=== PATIENT | female | born 1985 | race Caucasian/White ===

== ENCOUNTER 2017-11-24 16:26 | Inpatient (IN) | payer BC ==
[2017-11-24 16:56] LABS: #Basophils 0.1 thou/uL (0.0-0.2); #Eosinphils 0.1 thou/uL (0.0-0.7); #Lymphocytes 1.6 thou/uL (1.20-3.40); #Monocytes 0.8 thou/uL (0.11-0.59); #Neutrophils 6.4 thou/uL (1.40-6.50); %Basophils 1.6 % (0.0-1.0); %Eosinophils 1.5 % (0.0-10.0); %Lymphocytes 17.7 % (21.0-51.0); %Monocytes 8.5 % (0.0-10.0); %Neutrophils 70.7 % (42.0-75.0); Hemoglobin 11.6 g/dL (14.0-18.0); Mean Corpuscular HGB CONC 32.9 g/dL (32.0-36.0); Mean Corpuscular Hemoglobin 30.3 pg (27.0-31.0); Mean Corpuscular Volume 91.9 fl (80.0-94.0); Mean Platelet Volume 8.3 fL (7.4-10.4); Platelet Count 184 thou/uL (130-400); RBC Distribution Width 13.3 % (11.5-14.5); Red Blood Cell (RBC) Count 3.85 mill/uL (4.70-6.10)
[2017-11-24 17:22] VITALS: BMI 31.4
[2017-11-24 17:27] LABS: ALT (SGPT) 8 U/L (8-55); AST (SGOT) 11 U/L (5-34); Albumin 3.6 g/dL (3.5-5.0); Alkaline Phosphatase 76 U/L (40-150); Anion Gap 13 mmol/L (10-20); BUN (Urea Nitrogen) 11 mg/dL (8.9-20.6); Bilirubin, Total 0.2 mg/dL (0.2-1.2); Calc. Creatinine Clearance 210 mL/min (70-130); Calcium 8.9 mg/dL (7.8-10.44); Carbon Dioxide 20 mmol/L (22-29); Chloride 106 mmol/L (98-107); Estimated GFR-MDRD Greater than 90; Globulin 2.8 g/dL (2.4-3.5); Glucose 78 mg/dL (70-105); Potassium 3.8 mmol/L (3.5-5.1); Protein, Total 6.4 g/dL (6.0-8.3); Sodium 135 mmol/L (136-145)
--- NOTE | 2017-11-24 17:31 | PDOC.LDHP ---
Labor and Delivery H&P Chief complaint: other (elevated bp) HPI: 32 y/o G1 at 38w2d, patient of Dr. Molina, sent from clinic for elevated BPs in 140s/90s. Denies VB, LOF, ctx, or decreased FM. No RICKS, vision changes, or RUQ pain. ROS neg for HEENT, cv, pulm, gi, gu, neuro, psych, skin, musculoskeletal or constitutional symptoms other than mentioned above. OB History Details: First , uncomplicated so far Current complications: none Past Medical History: None Current medications: pre- vitamins Previous surgical history: none Allergies/Adverse Reactions: Allergies Allergy/AdvReac Type Severity Reaction Status Date / Time No Known Drug Allergies Allergy Verified 11/24/17 17:17 Social history: none - Physical Exam Abnormal vital signs: mild range BPs General: NAD, resting Lungs: nonlabored breathing Abdomen: gravid Extremeties: no edema FHT: category 1 (130s, mod variability, + accels, no decels) [place] contractions every: q 5 mins - OB Labs Blood type: A RH: positive Antibody Screen: negative HIV: negative RPR: negative HEPSAg: negative 1 hour GCT: negative GBS: negative Rubella: immune Additional Labs: Laboratory Tests 11/24/17 11/24/17 16:49 16:49 WBC 9.0 RBC 3.85 L Hgb 11.6 L Hct 35.4 L MCV 91.9 MCH 30.3 MCHC 32.9 RDW 13.3 Plt Count 184 MPV 8.3 Neutrophils % 70.7 Lymphocytes % 17.7 L Monocytes % 8.5 Eosinophils % 1.5 Basophils % 1.6 H Neutrophils # 6.4 Lymphocytes # 1.6 Monocytes # 0.8 H Eosinophils # 0.1 Basophils # 0.1 Sodium 135 L Potassium 3.8 Chloride 106 Carbon Dioxide 20 L Anion Gap 13 BUN 11 Creatinine 0.60 Estimated GFR (MDRD) Greater than 90 Glucose 78 Calcium 8.9 Total Bilirubin 0.2 AST 11 ALT 8 Alkaline Phosphatase 76 Serum Total Protein 6.4 Albumin 3.6 Globulin 2.8 Albumin/Globulin Ratio 1.3 - Assessment L&D Assessment: medically indicated induction - Plan Plan: admit to L&D, cervical ripening, informed consent obtained, anesthesia consult for pain management (if needed)
[2017-11-24] MEDS ORDERED: Ibuprofen 800 MG TAB PO PRN (17:50)
[2017-11-24] MEDS ORDERED: Methylergonovine 0.2 MG/ML VIAL IM PRN (17:50)
[2017-11-24] MEDS ORDERED: Misoprostol 200 MCG TAB PR PRN (17:50)
[2017-11-24] MEDS ORDERED: Acetaminophen 500 MG TAB PO PRN (17:50)
[2017-11-24] MEDS ORDERED: Carboprost 250 MCG/ML AMP IM PRN (17:50)
[2017-11-24] MEDS ORDERED: Lidocaine 1% (PF) 30 ML VIAL SC PRN (17:50)
[2017-11-24] MEDS ORDERED: LR / Pitocin 40 units/1000 ml 1,000 ML IV PRN (17:50)
[2017-11-24] MEDS ORDERED: Ondansetron HCl/PF 4 MG/2 ML Vial IVP PRN (17:50)
[2017-11-24] MEDS ORDERED: HYDROcodone/Acetaminophen 5/325 mg Tablet PO PRN ×2 (17:50)
[2017-11-24] MEDS ORDERED: Promethazine HCl 25 MG/ML VIAL IM PRN (17:50)
[2017-11-24] MEDS ORDERED: Diphenoxylate HCl/Atropine Tablet PO PRN ×2 (17:50)
[2017-11-24 18:37] LABS: Creatinine, Urine 48.83 mg/dL (47-110); Protein, Urine Random Quant Less than 10 mg/dL
[2017-11-24 19:56] LABS: HBSAg Index 0.14 S/CO (0-0.99); Hep B Surf Ag Non-Reactive S/CO (NonReactive); Syphilis Antibody Nonreactive (Nonreactive); Syphilis Antibody Index 0.03 S/CO (<1.00 Non-Reactive)
[2017-11-24] MEDS: Lactated Ringer's 1,000 ML IV SCH (20:10)
[2017-11-24] MEDS: Misoprostol 100 MCG TAB VAG SCH ×2 (20:16→23:44)
[2017-11-25] MEDS: Misoprostol 100 MCG TAB VAG SCH ×3 (07:13→15:30)
[2017-11-25] MEDS: Lactated Ringer's 1,000 ML IV SCH ×3 (08:16→22:00)
--- NOTE | 2017-11-25 12:59 | PDOC.LDPN ---
Labor & Delivery Progress Note - Objective Vital signs reviewed and normal: yes General: NAD Uterine fundus: non tender Dilation: 1-2 cm Effacement: 50% Station: -1 FHT: variability present [place] contractions every: q 2-3 mins Other exam findings: Ballon placement attempted, unable -: Asked to co-manage by Dr. Molina. Chart reviewed. Will start pitocin and observe closely.
[2017-11-25] MEDS ORDERED: LR 500 ML/Oxytocin 10 units 500 ML IV SCH (13:00)
[2017-11-25] MEDS ORDERED: Dexamethasone 20 MG/5 ML VIAL ONE (13:54)
[2017-11-25] MEDS ORDERED: Ondansetron HCl/PF 4 MG/2 ML Vial ONE ×2 (13:54→23:15)
[2017-11-25] MEDS ORDERED: PHENYLEPHRINE-NS 100 MCG/ML 10 ML SYRINGE ONE ×2 (13:54→23:15)
[2017-11-25] MEDS ORDERED: Lidocaine 2% MPF 10 ML AMP (For Epidural Use) ONE (13:54)
[2017-11-25] MEDS ORDERED: Ketorolac Tromethamine 30 MG/ML VIAL ONE ×2 (13:54→23:15)
--- NOTE | 2017-11-25 14:54 | PDOC.LDPN ---
Labor & Delivery Progress Note - Subjective Subjective: comfortable, other (pain 1/10) - Objective Vital signs reviewed and normal: yes (normal bp, no sx PIH) General: NAD Uterine fundus: non tender Dilation: 1 Effacement: 50% Station: -2 FHT: category 1 [place] contractions every: q4-5min - Assessment (1) Gestational hypertension Code(s): O13.9 - GESTATIONAL HTN W/O SIGNIFICANT PROTEINURIA, UNSP TRIMESTER Current Visit: Yes Status: Acute Qualifiers: Trimester: third trimester Qualified Code(s): O13.3 - Gestational [ -induced] hypertension without significant proteinuria, third trimester -: [place] Balloon placed 60/60, cont low dose pitocin to 10units. Incr balloon inflation to 80cc/balloon. Ok for epidural if desired. Balloon out at 0000. FHT reassuring. POC discussed with pt. No sx severe PIH. BP wnl.
[2017-11-25] MEDS ORDERED: Bupivacaine 0.5% 20 ML, Fentanyl 400 MCG in Sodium Chloride 0.9% 72 ML EPIDURAL SCH (16:00)
[2017-11-25] MEDS ORDERED: Acetaminophen 325 MG TAB PO PRN (16:57)
[2017-11-25] MEDS ORDERED: diphenhydrAMINE 50 MG/ML VIAL IVP PRN (16:57)
[2017-11-25] MEDS ORDERED: Naloxone HCl 0.4 mg/ml Vial IVP PRN ×2 (16:57)
[2017-11-25] MEDS ORDERED: Promethazine HCl 25 MG/ML VIAL IM PRN (16:57)
[2017-11-25] MEDS ORDERED: Lactated Ringer's 500 ML IV PRN (16:57)
[2017-11-25] MEDS ORDERED: ePHEDrine/0.9% NaCl/PF SYRINGE 50 mg/10 ml SLOW IVP PRN (16:57)
[2017-11-25] MEDS ORDERED: Eucerin (Mineral Oil/Petrolatum,White) 30 gm Jar TOP PRN (16:57)
[2017-11-25] MEDS ORDERED: Ondansetron HCl/PF 4 MG/2 ML Vial IVP PRN (16:57)
[2017-11-25] MEDS ORDERED: Fentanyl 4mcg/Marcaine 0.1% Cassette 100 ML EPIDURAL SCH (17:00)
[2017-11-25] MEDS ORDERED: Communication Order-Pharmacy FS SCH (17:00)
--- NOTE | 2017-11-25 17:50 | PDOC.LDPN ---
Labor & Delivery Progress Note - Subjective Subjective: comfortable - Objective General: NAD, resting FHT: variability present [place] contractions every: q 2- 4 mins, pitocin at 3 mu/min Other exam findings: comfortable with epidural now in place Plan: continue plan of care
--- NOTE | 2017-11-25 21:42 | PDOC.LDPN ---
Labor & Delivery Progress Note - Subjective Subjective: comfortable - Objective Vital signs reviewed and normal: yes General: resting SVE: last SVE per RN is 4 cm Effacement: 75% Station: -3 FHT: variability present [place] contractions every: irregularly seen Other exam findings: Baloon removed and piticin stopped for dec. variability. Procedures: Fhts improved, pitocin restarted Plan: continue plan of care
[2017-11-25] MEDS ORDERED: CEFAZOLIN/Water 2 GM/20 ML SYRINGE ONE (22:49)
[2017-11-25] MEDS ORDERED: Bicitra 30 ML UDCUP ONE (22:49)
--- NOTE | 2017-11-25 22:52 | PDOC.LDPN ---
Labor & Delivery Progress Note - Subjective Subjective: comfortable - Objective Vital signs reviewed and normal: yes General: NAD Uterine fundus: non tender Dilation: 4 Effacement: 75% Station: -3 (hand presentation, noncephalic) FHT: category 1 [place] contractions every: q4min - Assessment (1) Gestational hypertension Code(s): O13.9 - GESTATIONAL HTN W/O SIGNIFICANT PROTEINURIA, UNSP TRIMESTER Current Visit: Yes Status: Acute Qualifiers: Trimester: third trimester Qualified Code(s): O13.3 - Gestational [ -induced] hypertension without significant proteinuria, third trimester Plan: other (To OR for CS for malpresentation. R/B d/w pt and all questions answered. status reassuring.)
--- NOTE | 2017-11-25 22:54 | PDOC.OPDEL ---
OB Operative/Delivery Note Delivery Dr/Surgeon: Jesse Assist: Anthony Pre-Delivery Diagnosis: other (Hand presentation) Weeks gestation: 38 Anesthesia: epidural - Findings A Sex: male - Additional Findings/Plan Placenta delivered: spontaneous findings: low transverse hysterotomy without extension, normal uterus, normal tubes, normal ovaries Estimated blood loss: 900 Compilations/Other Findings: NC x 1, asynclitic and OP, hand presenting. Post delivery plan: routine recovery
[2017-11-25] MEDS ORDERED: CEFAZOLIN/Water 2 GM/20 ML SYRINGE SLOW IVP SCH (23:00)
[2017-11-25] MEDS ORDERED: Bicitra 30 ML UDCUP PO SCH (23:00)
[2017-11-25] MEDS ORDERED: Morphine PF 1 MG/ML SYR ONE (23:14)
[2017-11-25] MEDS ORDERED: Dexamethasone 4 mg/ml Vial ONE (23:15)
[2017-11-25] MEDS ORDERED: Bupivacaine 0.25% HCL 30 ML VIAL ONE (23:15)
[2017-11-25] MEDS ORDERED: Oxytocin 10 UNITS/ML VIAL ONE (23:15)
[2017-11-25] MEDS ORDERED: Carboprost 250 MCG/ML AMP ONE (23:36)
[2017-11-26] MEDS ORDERED: Naloxone HCl 0.4 mg/ml Vial IV PRN (00:03)
[2017-11-26] MEDS ORDERED: Ketorolac Tromethamine 30 MG/ML VIAL IVP PRN (00:03)
[2017-11-26] MEDS ORDERED: HYDROmorphone 2 MG/ML VIAL SLOW IVP PRN (00:03)
[2017-11-26] MEDS ORDERED: Ondansetron HCl/PF 4 MG/2 ML Vial IVP PRN ×3 (00:03→02:46)
[2017-11-26] MEDS ORDERED: Naloxone HCl 0.4 mg/ml Vial IVP PRN ×2 (00:03)
[2017-11-26] MEDS ORDERED: Promethazine HCl 25 MG SUPP PR PRN (00:03)
[2017-11-26] MEDS ORDERED: diphenhydrAMINE 50 MG/ML VIAL IVP PRN (00:03)
[2017-11-26] MEDS ORDERED: Promethazine HCl 25 MG/ML VIAL IM PRN (00:03)
[2017-11-26] MEDS ORDERED: Meperidine HCl/PF 25 MG/ML VIAL SLOW IVP PRN (00:03)
[2017-11-26] MEDS ORDERED: Eucerin (Mineral Oil/Petrolatum,White) 30 gm Jar TOP PRN (00:03)
[2017-11-26] MEDS ORDERED: Ketorolac Tromethamine 30 MG/ML VIAL IVP SCH (00:15)
[2017-11-26] MEDS ORDERED: Communication Order-Pharmacy FS SCH (00:15)
[2017-11-26] MEDS ORDERED: Lidocaine 2% MPF 10 ML AMP (For Epidural Use) ONE (01:00)
[2017-11-26] MEDS ORDERED: Bupivacaine 0.25% HCL 30 ML VIAL ONE (01:00)
--- NOTE | 2017-11-26 01:32 | OP ---
DATE OF OPERATION: 11/25/2017 PREOPERATIVE DIAGNOSES: 1. Intrauterine at 38 weeks and 4 days. 2. Gestational hypertension. 3. Malpresentation with the hand presenting. POSTOPERATIVE DIAGNOSES: 1. Intrauterine at 38 weeks and 4 days. 2. Gestational hypertension. 3. Malpresentation with the hand presenting. PROCEDURE: Primary low transverse section via Pfannenstiel skin incision. ANESTHESIA: Epidural. ATTENDING SURGEON: Tatiana Molina M.D. BATTERY CHECKER SURGEON: Andrew Cruz M.D. ESTIMATED BLOOD LOSS: 900 mL. IV FLUIDS: 1300 mL crystalloid. URINE OUTPUT: 100 mL, clear urine. FINDINGS: Normal uterus, ovaries and tubes bilaterally. Clear amniotic fluid. Viable male , cephalic presentation. Apgars and weight are currently pending. Hysterotomy without extension. DRAINS: [place] catheter. PATHOLOGY: None. COMPLICATIONS: None. OPERATIVE TECHNIQUE: The patient was taken to the operating room where epidural anesthesia was found to be adequate. The patient was prepped and draped in a sterile fashion in the dorsal supine positi on with leftward tilt. After ensuring adequacy of anesthesia, a Pfannenstiel skin incision was made and carried down to the underlying subcutaneous tissue with the knife. The fascia was nicked in the midline with the knife and carried laterally with the Reyes scissors. The superior aspect of the fasc ia was tented with 2 Kochers and dissected off the rectus bluntly. The inferior aspect of the fascia was tented with 2 Kochers and dissected off the rectus down to the pubic symphysis. The peritoneum was bluntly entered into and manually retracted. The Leobardo O retractor was placed and the bladder f lap was created with the Metzenbaums. The lower uterine segment was incised in a transverse fashion and extended with the Redman maneuver. The 's head was brought to the hysterotomy and delivered atraumatically with fundal pressure followed by the body. Infant's cord was clamped and infant brandon d to awaiting mohan team. Cord blood was obtained and the placenta was spontaneously delivered. The u terus was exteriorized, cleared of all clots and debris and noted to be boggy. Pitocin was infusing and fundal massage was performed. The hysterotomy was repaired with a #1 Monocryl in a running locki ng fashion. Uterine tone did not improve much. There was not an excessive amount of bleeding; roxannaev er, Hemabate 0.2 was called for and this was given IM and uterine tone improved. Complete hysterotom y closure was performed and oozing from the left lateral side was noted on the inferior margin. This was hemostatic with a [id number] stitch of #1 Monocryl. The posterior cul-de-sac was lapped ou t, the uterus was replaced, and hysterotomy was noted to be hemostatic. Irrigation of the pelvis was performed. The bladder flap was cauterized for hemostasis which was excellent, and the peritoneum w as then placed back over the uterus and the rectus muscles were examined and noted to be hemostatic. The fascia was reapproximated with 0 PDS x2 sutures with excellent reapproximation. The subcutaneou s tissue was irrigated and cauterized of any bleeders and reapproximated with 2-0 plain gut in a runn ing fashion. The skin was closed with 4-0 Monocryl in subcuticular fashion and Dermabond was applied . The patient tolerated the procedure well. Sponge, lap, and needle counts were correct x2. The pa tient was taken to recovery room in stable condition. The patient received Ancef 2 grams prior to th e procedure.
[2017-11-26] MEDS ORDERED: Lanolin Ointment 7 GM TUBE TOP PRN (02:46)
[2017-11-26] MEDS ORDERED: diphenhydrAMINE 25 MG CAP PO PRN (02:46)
[2017-11-26] MEDS ORDERED: Adacel (T-DAP) 0.5 ML VIAL IM ONE (02:46)
[2017-11-26] MEDS ORDERED: Acetaminophen 325 MG TAB PO PRN (02:46)
[2017-11-26] MEDS ORDERED: Bisacodyl 10 MG SUPP PR PRN (02:46)
[2017-11-26] MEDS: Lactated Ringer's 1,000 ML IV SCH (05:00)
[2017-11-26 05:32] LABS: Mean Corpuscular HGB CONC 33.3 g/dL (32.0-36.0); Mean Corpuscular Hemoglobin 30.5 pg (27.0-31.0); Mean Corpuscular Volume 91.8 fl (81.0-99.0); Mean Platelet Volume 8.6 fL (7.4-10.4); Platelet Count 149 thou/uL (130-400); RBC Distribution Width 13.1 % (11.5-14.5); White Blood Cell (WBC) Count 13.2 thou/uL (4.8-10.8)
--- NOTE | 2017-11-26 06:10 | PDOC.PP ---
Post Progress Note Post Day #: POD#1 PO intake tolerated: yes Flatus: no Ambulation: no Vital Signs (12 hours) Temp Pulse Resp BP 11/26/17 04:00 97.6 F 68 16 127/73 11/26/17 03:36 69 16 128/73 11/26/17 02:35 97.8 F 70 16 138/86 11/25/17 20:00 98.4 F 80 18 Weight Weight 85.729 kg - Physical Examination General: NAD Abdominal: no distention Fundus firm & at: below umbilicus Extremities: negative homans (B) Skin: CS incision dry & intact Result Diagrams: 11/26/17 05:16 11/24/17 16:49 Additional Labs: Post Labs Blood Type A POSITIVE 11/24/17 19:05 Hep Bs Antigen Non-Reactive S/CO (NonReactive) 11/24/17 19:05 - Assessment/Plan Doing well s/p 1* C/s. Barrett anderson at mid day. Routine postop care.
[2017-11-26] MEDS: Docusate Calcium (SURFAK) 240 MG CAP PO SCH ×2 (09:33→21:27)
[2017-11-26] MEDS: Prenatal Vitamin 1 TAB PO SCH (09:33)
[2017-11-26] MEDS: Ferrous Sulfate 325 MG TAB PO SCH ×2 (09:33→20:38)
[2017-11-26] MEDS ORDERED: HYDROcodone/Acetaminophen 5/325 mg Tablet PO PRN (12:15)
[2017-11-26] MEDS: HYDROcodone/Acetaminophen 5/325 mg Tablet PO PRN ×2 (14:24→18:29)
[2017-11-26] MEDS: Ibuprofen 800 MG TAB PO SCH (21:26)
[2017-11-26] MEDS: Simethicone Chewable 80 MG TAB PO PRN (21:27)
[2017-11-27] MEDS: HYDROcodone/Acetaminophen 5/325 mg Tablet PO PRN ×3 (03:05→18:41)
[2017-11-27] MEDS: Ibuprofen 800 MG TAB PO SCH ×3 (05:16→21:47)
[2017-11-27] MEDS ORDERED: Ibuprofen 800 MG TAB PO SCH (06:00)
[2017-11-27] MEDS: Prenatal Vitamin 1 TAB PO SCH (09:11)
[2017-11-27] MEDS: Simethicone Chewable 80 MG TAB PO PRN ×2 (09:11→21:47)
[2017-11-27] MEDS: Docusate Calcium (SURFAK) 240 MG CAP PO SCH ×2 (09:12→21:47)
[2017-11-27] MEDS: Ferrous Sulfate 325 MG TAB PO SCH ×2 (09:19→23:26)
--- NOTE | 2017-11-27 16:51 | PDOC.PP ---
Post Progress Note Post Day #: 2 PO intake tolerated: yes Flatus: yes Ambulation: yes Vital Signs (12 hours) Temp Pulse Resp BP 11/27/17 12:00 98.5 F 81 20 11/27/17 11:48 98.5 F 81 20 138/75 11/27/17 08:00 98.4 F 86 20 145/82 H Weight Weight 189 lb - Physical Examination General: NAD Cardiovascular: RRR Respiratory: non-labored breathing Abdominal: no distention, appropriately TTP Fundus firm & at: umb Skin: CS incision dry & intact Psychiatric: normal affect Result Diagrams: 11/26/17 05:16 11/24/17 16:49 Additional Labs: Post Labs Blood Type A POSITIVE 11/24/17 19:05 Hep Bs Antigen Non-Reactive S/CO (NonReactive) 11/24/17 19:05 (1) Gestational hypertension Code(s): O13.9 - GESTATIONAL HTN W/O SIGNIFICANT PROTEINURIA, UNSP TRIMESTER Status: Acute Qualifiers: Trimester: third trimester Qualified Code(s): O13.3 - Gestational [ -induced] hypertension without significant proteinuria, third trimester
[2017-11-27 23:22] VITALS: TEMP 98.6
[2017-11-28] MEDS: Ibuprofen 800 MG TAB PO SCH (05:12)
[2017-11-28 08:15] VITALS: BP 127/81
[2017-11-28] MEDS: Ferrous Sulfate 325 MG TAB PO SCH (09:29)
[2017-11-28] MEDS: Prenatal Vitamin 1 TAB PO SCH (09:30)
[2017-11-28] MEDS: Docusate Calcium (SURFAK) 240 MG CAP PO SCH (09:30)
[2017-11-28] MEDS: Simethicone Chewable 80 MG TAB PO PRN (09:30)
[2017-11-28] MEDS: HYDROcodone/Acetaminophen 5/325 mg Tablet PO PRN (09:32)
--- NOTE | 2017-11-28 09:51 | PDOC.PP ---
Post Progress Note Post Day #: 3 PO intake tolerated: yes Flatus: yes Ambulation: yes Vital Signs (12 hours) Temp Pulse Resp BP 11/28/17 08:14 98.6 F 99 20 127/81 11/28/17 08:00 98.6 F 99 20 Weight Weight 189 lb - Physical Examination General: NAD Cardiovascular: RRR Respiratory: non-labored breathing Abdominal: no distention, appropriately TTP Fundus firm & at: umb-2 Skin: CS incision dry & intact Neurological: no gross focal deficits Psychiatric: normal affect Result Diagrams: 11/26/17 05:16 11/24/17 16:49 Additional Labs: Post Labs Blood Type A POSITIVE 11/24/17 19:05 Hep Bs Antigen Non-Reactive S/CO (NonReactive) 11/24/17 19:05 (1) Gestational hypertension Code(s): O13.9 - GESTATIONAL HTN W/O SIGNIFICANT PROTEINURIA, UNSP TRIMESTER Status: Acute Qualifiers: Trimester: third trimester Qualified Code(s): O13.3 - Gestational [ -induced] hypertension without significant proteinuria, third trimester (2) Malpresentation of fetus, delivered Code(s): O32.9XX0 - MATERNAL CARE FOR MALPRESENTATION OF FETUS, UNSP, UNSP Status: Acute - Assessment/Plan POD 3 s/p PCS for hand presentation VSSAF Met all postop milestones, pain controlled, cyndee diet, ambulating, voiding GHTN no sx PIH, BP mostly wnl. Rh pos RImm DC home fu 2 wks.
== END 2017-11-28 14:05 | disposition home or self-care (01) | DRG 766 ==
LOC: L&D/OP 16:26 → EDSEX 16:26 → L&D 18:28 → L&D/OP 11-25 06:56 → L&D 11-25 06:57 → 3SW 11-26 02:20
PROVIDERS: ADMIT Student in an Organized Health Care Education/Training Program; ATTEND Student in an Organized Health Care Education/Training Program
PROC: 10D00Z1 Extraction of Products of Conception, Low, Open Approach (ICD-10-PCS; principal; 2017-11-25)
PROC: 10907ZC Drainage of Amniotic Fluid, Therapeutic from Products of Conception, Via Natural or Artificial Opening (ICD-10-PCS; 2017-11-25)
DX: O32.2XX0 Maternal care for transverse and oblique lie, not applicable or unspecified (principal); O13.4 Gestational [pregnancy-induced] hypertension without significant proteinuria, complicating childbirth; Z3A.38 38 weeks gestation of pregnancy; Z37.0 Single live birth; O76 Abnormality in fetal heart rate and rhythm complicating labor and delivery; O69.81X0 Labor and delivery complicated by cord around neck, without compression, not applicable or unspecified
CPT/HCPCS: 36415; 51702; 76815; 80053; 82570; 84156; 85025; 85027; 86780; 86850; 86900; 86901; 87340; 99285; C1726; J0595; J1100; J1885; J2001; J2274; J2310; J2405; J2590; J3010; J3490; J7050; J7120; S0020